=== PATIENT | female | born 1990 | race Caucasian/White ===

== ENCOUNTER 2017-10-11 13:50 | Emergency (ER) | payer SELFPAY ==
[~2017-10-11] VITALS: Ht 170.2 cm; Wt 69.0 kg
[~2017-10-11 13:50] MED LIST: BACT2OIN TOP; BACT800T5 PO; CEPH500T PO; HYDR25 PO; IBUP-232 PO; MACR100C PO; PHEN-426 PO
[2017-10-11 14:01] VITALS: BP 125/76; PULSE 74; RESP 16; TEMP 98.6; O2SAT 99
[2017-10-11] MEDS ORDERED: ONDANSETRON ODT 4 MG TAB PO ONE (14:15)
--- NOTE | 2017-10-11 14:20 | PD ---
HPI Chief Complaint: Medical Clearance Time Seen by Provider: 14:11 Travel History International Travel<30 days: No Contact w/Intl Traveler<30days: No Traveled to known affect area: No History of Present Illness HPI Is a 27-year-old woman presents to the emergency department for medical clearance. She was under arrest and she threw up an intake and so was sent to the ED for evaluation. Patient complains of some headache. Some belly discomfort. She reports that she took Xanax this morning at 8 AM, used heroin at 10 AM denies any history of symptoms prior to this. No recent trauma. No other recent illness or injury. No other complaints. History Past Medical History Narrative Medical Illicit drug use LMP: END August : 1 Para: 0 Social History Alcohol Use: No Tobacco Use: No Allergies-Medications (Allergen,Severity, Reaction): Coded Allergies: No Known Allergies (Verified Adverse Reaction, Unknown, 10/11/17) Reported Meds & Prescriptions Reported Meds & Active Scripts Active No Active Prescriptions or Reported Medications Review of Systems Except as stated in HPI: all other systems reviewed are Neg Physical Exam Narrative GENERAL: Well-appearing 27-year-old woman, no acute distress per SKIN: Focused skin assessment warm/dry. HEAD: Atraumatic. Normocephalic. EYES: Pupils equal and round. No scleral icterus. No injection or drainage. ENT: No nasal bleeding or discharge. Mucous membranes pink and moist. NECK: Trachea midline. No JVD. CARDIOVASCULAR: Regular rate and rhythm. No murmur appreciated. RESPIRATORY: No accessory muscle use. Clear to auscultation. Breath sounds equal bilaterally. GASTROINTESTINAL: Abdomen is flat and soft. No significant tenderness. MUSCULOSKELETAL: No obvious deformities. No edema. No deformity. Focused exam of the right ankle is normal. NEUROLOGICAL: Awake and alert. No obvious cranial nerve deficits. Motor grossly within normal limits. Normal speech. PSYCHIATRIC: Appropriate mood and affect; insight and judgment normal. Data Data Last Documented VS Vital Signs Date Time Temp Pulse Resp B/P (MAP) Pulse Ox O2 Delivery O2 Flow Rate FiO2 10/11/17 14:01 98.6 74 16 125/76 (92) 99 Orders Orders Comprehensive Metabolic Panel (10/11/17 14:12) Complete Blood Count With Diff (10/11/17 14:12) Beta Hcg (Quant/Titer) (10/11/17 14:12) Ondansetron Odt (Zofran Odt) (10/11/17 14:15) Acetaminophen (Tylenol) (10/11/17 14:30) [facility] Medical Decision Making Medical Screen Exam Complete: Yes Emergency Medical Condition: Yes Differential Diagnosis Adverse effect of illicit drugs, dehydration, infection, gastroenteritis, , other Narrative Course Medical decision making Is a 27-year-old woman presents to the emergency department for evaluation for nausea vomiting. She looks well. She has minimal complaints now. She needs clearance for assisted. She is medically clear for assisted. We will give her some Zofran and some Tylenol. I do not think she is any further diagnostic studies. Diagnosis Primary Impression: Vomiting Patient Instructions: General Instructions Additional Instructions: Patient is medically clear for assisted. Med/Other Pt SpecificInfo: No Change to Meds Scripts No Active Prescriptions or Reported Meds Disposition: 01 DISCHARGE HOME Condition: Stable Jai Hinson MD October 11, 2017 14:20
[2017-10-11] MEDS ORDERED: ACETAMINOPHEN 500 MG CPLT PO ONE (14:30)
== END 2017-10-11 14:33 | disposition home or self-care (01) ==
LOC: NEPD 13:50
DX: R11.10 Vomiting, unspecified (principal); R51 Headache
CPT/HCPCS: 99283